=== PATIENT | male | born 1960 | race Caucasian/White ===

== ENCOUNTER 2021-04-28 12:52 | Observation (INO) ==
[2021-04-28] MEDS ORDERED: ceFAZolin 2,000 MG/50 ML DUPLEX IV ONE (13:16)
[2021-04-28] MEDS ORDERED: DIPH/TET/ACEL PERT BOOSTER VACCINE 0.5 ML VIAL IM ONE (13:16)
[2021-04-28] MEDS ORDERED: ceFAZolin 1,000 MG VIAL ONE (13:23)
[2021-04-28] MEDS ORDERED: SODIUM CHLORIDE 0.9% 100 ML IV ONE (13:24)
[2021-04-28 13:44] LABS: Basophils # 0.1 10*3/uL (0.0-0.2); Basophils % 0.5 % (0.0-0.8); Eosinophils # 0.3 10*3/uL (0.0-0.87); Eosinophils % 3.1 % (0.00-10.9); Hemoglobin 16.2 GM/DL (14.0-18.0); Immature Granulocytes % 0.5 %; Immature Granulocytes Absolute 0.05 #; Lymphocytes # 1.1 10*3/uL (1.4-4.0); Lymphocytes % 11.1 % (21.2-54.2); Mean Corpuscular HGB Conc 33.8 GM/DL (32-36); Mean Platelet Volume 11.5 FL (9.6-12.0); Monocytes % 6.6 % (1.7-12.7); Neutrophils % 78.2 % (38.7-73.9); Platelet Count 145 T/CUMM (130-400); Red Blood Count 5.05 MC/CUMM (3.8-5.5); Red Cell Distribution Width 11.9 % (9.3-17.3); White Blood Count 9.9 T/CUMM (4-12)
[2021-04-28] MEDS ORDERED: ACETAMINOPHEN 325 MG TABLET PO PRN (13:52)
[2021-04-28] MEDS ORDERED: ONDANSETRON 4 MG/2 ML VIAL IV PRN (13:52)
[2021-04-28 13:59] LABS: Calcium 8.9 MG/DL (8.5-10.1); Osmolality,Calculated 286.1 MOS/KG (273-304)
[2021-04-28] MEDS: MORPHINE 4 MG/1 ML VIAL IV PRN ×2 (16:01→21:12)
[2021-04-28] MEDS: LACTATED RINGERS 1,000 ML IV SCH (16:04)
[2021-04-29] MEDS: LACTATED RINGERS 1,000 ML IV SCH ×3 (02:56→18:22)
[2021-04-29] MEDS: MORPHINE 4 MG/1 ML VIAL IV PRN ×2 (03:04→12:09)
[2021-04-29] MEDS ORDERED: ceFAZolin 2,000 MG/50 ML DUPLEX IV ONE (07:45)
[2021-04-29] MEDS ORDERED: fentaNYL 100 MCG/2 ML VIAL ONE (08:57)
[2021-04-29] MEDS ORDERED: MIDAZOLAM 2 MG/2 ML VIAL ONE (08:57)
[2021-04-29] MEDS ORDERED: LIDOCAINE 2% 5 ML VIAL ONE (09:47)
[2021-04-29] MEDS ORDERED: SEVOFLURANE 1 UNIT/15 MINUTE INH ONE (09:47)
[2021-04-29] MEDS ORDERED: propofoL 200 MG/20 ML VIAL IV ONE (09:47)
[2021-04-29] MEDS ORDERED: diphenhydrAMINE 50 MG/1 ML VIAL IV PRN (09:57)
[2021-04-29] MEDS ORDERED: PROMETHAZINE INJ 25 MG in SODIUM CHLORIDE 0.9% 50 ML IV PRN (09:57)
[2021-04-29] MEDS ORDERED: ONDANSETRON 4 MG/2 ML VIAL IV PRN (09:57)
[2021-04-29] MEDS ORDERED: MEPERIDINE 25 MG/1 ML VIAL IV PRN (09:57)
[2021-04-29] MEDS ORDERED: MORPHINE 10 MG/1 ML VIAL IV PRN (09:57)
[2021-04-29] MEDS: HYDROmorphone 2 MG/1 ML VIAL IV PRN ×4 (10:10→10:25)
[2021-04-29] MEDS: ENOXAPARIN 40 MG/0.4 ML SYRINGE SUBCUT SCH (12:09)
[2021-04-30] MEDS: LACTATED RINGERS 1,000 ML IV SCH (03:06)
[2021-04-30 07:16] VITALS: BP 109/77
[2021-04-30] MEDS: ENOXAPARIN 40 MG/0.4 ML SYRINGE SUBCUT SCH (07:23)
== END 2021-04-30 10:59 | disposition home or self-care (01) ==
LOC: N.EDINP 12:52 → N.ED 12:52 → N.EDINP 15:01 → N.3E 15:19
PROVIDERS: ADMIT Student in an Organized Health Care Education/Training Program; ATTEND Student in an Organized Health Care Education/Training Program